=== PATIENT | female | born 1955 | race Asian ===

== ENCOUNTER 2023-10-18 12:01 | Day surgery (SDC) | payer OTHER ==
[~2023-10-18] VITALS: Ht 154.9 cm; Wt 60.8 kg
[2023-10-18] MEDS ORDERED: fentaNYL citrate 0.05 MG/ML VIAL ONE (14:00)
[2023-10-18] MEDS ORDERED: MIDAZOLAM 5 MG/5 ML VIAL ONE (14:00)
[2023-10-18] MEDS ORDERED: MIDAZOLAM 2 MG/2 ML VIAL IVP ONE (15:00)
== END 2023-10-18 14:50 | disposition home or self-care (01) ==
LOC: MDS 12:01 → MMU 13:03 → MDS 14:50
PROVIDERS: ATTEND Internal Medicine Gastroenterology
DX: R10.13 Epigastric pain (principal); K29.70 Gastritis, unspecified, without bleeding; K21.9 Gastro-esophageal reflux disease without esophagitis; I10 Essential (primary) hypertension; E78.00 Pure hypercholesterolemia, unspecified; Z79.899 Other long term (current) drug therapy
CPT/HCPCS: 36415; 43239; 86677; J2250; J3010